=== PATIENT | male | born 1970 | race Caucasian/White ===

== ENCOUNTER → 2024-07-09 | Outpatient (CLI) | payer MEDICAID, SELFPAY ==
[2024-07-09 12:06] LABS: Absolute Lymphocyte Count 1.35 X10^3/uL (0.83-4.51); Absolute Neutrophil Count 4.7 X10^3/uL (2.0-7.7); Basophil# 0.05 X10^3/uL; Basophil% 0.7 % (0-1); Eosinophil# 0.18 X10^3/uL; Eosinophils% 2.6 % (0-5); Hematocrit 47.5 % (40-54); Lymphocyte # 1.35 X10^3/ul (0.83-4.51); Lymphocyte % 19.1 % (19-41); Mean Corp Hgb Conc 33.7 g/dL (32-36); Mean Corpuscular Hgb 30.3 pg (27.0-32.0); Mean Platelet Vol. 9.2 fl (6.2-12.0); Monocyte# 0.69 X10^3/uL; Monocyte% 9.8 % (0-10); NRBC Flagged by Analyzer 0 % (0-5); Neutrophil # 4.73 X10^3/uL (2.7-7.7); Neutrophil % 67.1 % (47-70); Platelet Count 306 K/mm3 (150-450); RBC Distribution Width CV 12.7 % (11.6-14.6); RBC Distribution Width SD 41.8 fl (35.1-43.9); Red Blood Count 5.28 M/mm3 (4.6-6.2); White Blood Count 7.1 K/mm3 (4.4-11.0)
[2024-07-09 13:35] LABS: ALB/GLOB Ratio 1.5 RATIO (0.9-2.4); AST(SGOT) 24 U/L (<=37); Alanine Aminotransfer ALT/SGPT 19 U/L (<=46); Albumin, Serum 4.4 g/dL (3.5-5.0); Alkaline Phosphatase 89 U/L (40-129); Anion Gap 9 (5-15); BUN 14 mg/dL (4-19); BUN/Creat Ratio 13.1 RATIO (10-20); Calcium,Total 9.1 mg/dL (7.6-11.0); Carbon Dioxide 24.6 mmol/L (21.0-32.0); Chloride 102 mmol/L (98-108); Creatinine, Serum 1.06 mg/dL (0.70-1.20); EST Glomerular Filtration Rate 85 (>60); Glucose 95 mg/dL (70-99); Potassium 4.1 mmol/L (3.3-5.1); Protein, Total 7.3 g/dL (5.9-8.4); Sodium Level 136 mmol/L (133-145); Total Bilirubin 0.59 mg/dL (0.00-1.30); Vitamin B12 412 pg/mL (180-914); Vitamin D,25 Hydroxy 27.3 ng/mL (30-100)
== END | disposition home or self-care (01) ==
LOC: LAB 11:39
DX: F32.A Depression, unspecified (principal); N52.9 Male erectile dysfunction, unspecified
CPT/HCPCS: 36415; 80053; 82306; 82607; 84402; 84403; 84443; 85025

== ENCOUNTER 2024-08-12 08:51 | Day surgery (SDC) | payer MEDICAID, SELFPAY ==
[2024-08-12] VITALS (13 sets, daily range): BP systolic 110–132; BP diastolic 78–92; PULSE 70–84; RESP 12–18; TEMP 36.3–37.6; O2SAT 95–100; BMI 24.0
--- NOTE | 2024-08-12 09:00 | EKG12_ITS ---
Test Reason : PREOP Blood Pressure : */* mmHG Vent. Rate : 82 BPM Atrial Rate : 82 BPM P-R Int : 146 ms QRS Dur : 142 ms QT Int : 412 ms P-R-T Axes : 15 119 3 degrees QTcB Int : 481 ms Normal sinus rhythm Right bundle branch block Abnormal ECG No previous ECGs available Confirmed by Jarrell Melgar ([id number]), rewrite editor LATRICIA GUADALUPE ([id number]) on 08/16/2024 9:14:43 AM Referred By: Sami Martinez Confirmed By: Jarrell Melgar
[2024-08-12] MEDS: Lactated Ringers 1,000 ML 15 ML IV (09:43)
--- NOTE | 2024-08-12 09:52 | PCM.PRE.AN2 ---
ASA Classification* ASA Classification ASA Classification: 2 Assessment & Plan Anesthesia* Anesthesia Assessment Anesthesia Assessment: Discussed sedation and/or anesthesia options, risks, benefits, and alternatives with patient/parents/legal guardian/POA. Questions invited. The patient/parents/legal guardian/POA seems to understand and agrees to proceed with anesthesia plan. Reviewed the physical assessment, medical history, allergy history and patient home medications list prior to surgery/procedure/anesthetic and documented any changes. Performed airway and anesthesia risk assessments. Anesthesia Type Anesthesia Type: General (Patient is concerned about awareness IntraOp. Will use a bis monitor.) History Source History Obtained from:: Patient and Chart Anesthesia Focused Assessment* Temperature: 99.7 F Pulse Rate: 84 Blood Pressure: 132/92 Respiratory Rate: 16 Pulse Ox: 99 Oxygen Delivery Method: Room Air Airway Assessment Mouth opens: >3 cm Mallampati Score: I Teeth Condition: Chipped/Broken (Patient has a chipped #8. Has a couple broken molars on the upper jaw.) Neck Range of motion (ROM): Full ROM Focused Labs Anesthesia Preop lab: CBC WBC 7.1 K/mm3 (4.4-11.0) 07/09/24 11:47 07/09/24 RBC 5.28 M/mm3 (4.6-6.2) 07/09/24 11:47 07/09/24 Hgb 16.0 g/dL (13.0-16.5) 07/09/24 11:47 07/09/24 Hct 47.5 % (40-54) 07/09/24 11:47 07/09/24 Plt Count 306 K/mm3 (150-450) 07/09/24 11:47 07/09/24 CHEMISTRY Potassium 4.1 mmol/L (3.3-5.1) 07/09/24 11:47 07/09/24 Sodium 136 mmol/L (133-145) 07/09/24 11:47 07/09/24 BUN 14 mg/dL (4-19) 07/09/24 11:47 07/09/24 Creatinine 1.06 mg/dL (0.70-1.20) 07/09/24 11:47 07/09/24 Glucose 95 mg/dL (70-99) 07/09/24 11:47 07/09/24 TSH 1.510 uIU/mL (0.300-4.200) 07/09/24 11:47 07/09/24 COAG Pre-Assessment Diagnosis/Proposed Procedure Planned Operative Procedure(s): LAP ROBOTIC INGUINAL HERNIA RIGHT WITH MESH Anesthesia History Anesthesia History - learning development specialist: Anesthesia History - learning development specialist Hx Hospitalization No 08/06/24 13:31 Any Problems With Anesthesia No 08/06/24 13:31 Cholinesterase deficiency No 08/06/24 13:31 You/Your Family Experience No 08/06/24 13:31 fever (hyperthermia) with Relationship Recent Exposure to Contagious No 08/12/24 09:36 Disease Does patient have nerve No 08/06/24 13:31 stimulator Patient instructed to have device shut off --Does patient have Pacemaker No 08/12/24 09:36 or ICD? When Was Last Pacemaker Check QUESTION #4 FULL TEXT: You/Your Family Experience fever (hyperthermia) with Anesthesia Last Oral Intake Last Oral intake: Last Oral Intake NPO since 22:00 08/12/24 09:36 Meds taken in AM with sips of No 08/12/24 09:36 water? Meds patient instructed to take am of surgery PONV PONV - learning development specialist: PONV - learning development specialist Female No 08/06/24 13:31 HX of Motion Sickness No 08/06/24 13:31 HX of N/V After Surgery No 08/06/24 13:31 Non-Smoker Yes 08/06/24 13:31 Duration of Surgery greater Yes 08/06/24 13:31 than 60 minutes Number of Risk Factors 2 08/06/24 13:31 PONV Score Moderate Risk 08/06/24 13:31 Height & Weight Height & Weight: Anesthesia: Height & Weight Height 6 ft 3 in 08/12/24 09:36 Weight: 87.1 kg 08/12/24 09:36 Body Mass Index (BMI) 24.0 08/12/24 09:36 Respiratory Assessment Respiratory Assessment - learning development specialist: Respiratory Tract Infection Hx - learning development specialist Hx Respiratory Tract Infection No 08/06/24 13:31 STOP Sleep Apnea STOP Sleep Apnea - learning development specialist: STOP Sleep Apnea - learning development specialist Hx Hypertension No 08/06/24 13:31 Hx Sleep Apnea No 08/06/24 13:31 CPAP BIPAP Do you snore loudly (louder No 08/06/24 13:31 than talking or can be heard Do you often feel tired/ Yes 08/06/24 13:31 fatigued/ sleepy during daytime? Has anyone observed you stop No 08/06/24 13:31 breathing during sleep? STOP Results Negative 08/06/24 13:31 QUESTION #5 FULL TEXT : Do you snore loudly (louder than talking or can be heard through closed doors)? Tobacco Use History Tobacco Use History - learning development specialist: Tobacco Use History - learning development specialist Tobacco Use Smoking Status Never smoker 08/06/24 13:31 Hx Tobacco Use No 08/06/24 13:31 Years Smoking Packs Smoked per Day Smoking Cessation Date was within the last 15 years Hx Smoking Cessation Date Hx Smoking Cessation Counseling Hematologic Medial History Hematologic Hx - learning development specialist: Hematologic Medical Hx - tester wafer substrate Hx of Blood Transfusion No 08/06/24 13:31 Hx of Transfusion in last 3 No 08/06/24 13:31 Months Date of Last Transfusion (if within last 3 months) Ever experience any problems No 08/06/24 13:31 with transfusion(s)? Specify any problems Hx of Preganancy in last 3 N/A 08/06/24 13:31 Months Nurse Filling Out Transfusion DSCHRIBER 08/06/24 13:31 & Questions: Date: 08/06/24 08/06/24 13:31 Time: 13:32 08/06/24 13:31 Patient unable to answer at this time (ie. confused, unrespo /Reproduction History /Reproductive History - learning development specialist: /Reproductive Hx- learning development specialist Hx Now No 08/06/24 13:31 Gestational Age (in weeks): EDC: Hx Hx Para Hx Section SAB No 08/06/24 13:31 Active Medications Active Medications: Current Medications Generic Name Dose Route Start Last Admin Trade Name Freq PRN Reason Stop Dose Admin Cefazolin Sodium 2 gm/ Sodium 110 mls @ 150 mls/hr 08/12/24 11:00 Chloride IV 08/12/24 11:43 INTRAOP ONE Lactated Ringer's 1,000 mls @ 15 mls/hr 08/12/24 09:00 08/12/24 09:43 IV 15 mls/hr .Q48H YARELIS Administration PFSH Medical History Wears glasses Substance abuse Alcohol use Back pain Injury of back Leg cramps Non-smoker Injury of head and neck Arthritis Anxiety Home Medications ?Medication ?Instructions ?Recorded ?Last Taken ?Type cholecalciferol (vitamin D3) 25 25 mcg PO QDAY 07/20/24 08/10/24 History mcg (1,000 unit) capsule naproxen sodium 220 mg capsule 220 mg PO BID PRN pain 07/20/24 Unknown History (Aleve) sildenafil 50 mg tablet 50 mg PO QDAY PRN ED 07/20/24 08/10/24 History Allergy/AdvReac Type Severity Reaction Status Date / Time No Known Allergies Allergy Verified 08/12/24 09:34 Family History Father Cancer lung Mother Heart disease CHF (congestive heart failure) Surgical History Hx of knee surgery Hx of shoulder surgery H/O bilateral inguinal hernia repair Social History Smoking Status: Never smoker alcohol intake: former Review of Systems (Anesthesia) ROS Narrative System reviewed and no additional complaints, except as documented.
--- OUTSIDE RECORDS SUMMARY | 2024-08-12 09:56 | XMS RPT_ITS | CCD ---
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 Sami Ty Attending Provider [facility] PRODUCTION CORRUGATOR.Sho REDD Unavailable Sami Martinez Attending Unavailable Beam, Wicho Primary Care Unavailable Beam, W[place]o Referring Unavailable Sami Martinez Referring Unavailable Beam VSC, Zebugarima Primary Care Unavailable Sami Martinez Attending Unavailable Care Physician, No Primary Primary Care Unava ilable Beam VSC, Zebumaykeln Attending Unavailable Beam VSC, Zebulun Referring Unavailable Medications Current Medications Medication Drug Class(es) Dates Sig (Normalized) Sig (Original) cholecalciferol 0.025 mg oral capsule (1 source) Vitamin D Start: 5 take 1 capsule by mouth once daily Cholecalciferol (Vitamin D3) 25 mcg (1,000 unit) capsule Active 25 ug PO daily July 20, 2024 12:00am naproxen sodium 220 mg oral capsule (1 source) Nonsteroidal Anti-inflammatory Drug Start: 5 take 1 capsule by mouth twice daily as needed Naproxen Sodium (Aleve) 220 mg capsule Active 220 mg PO TWICE A DAY as needed July 20, 2024 12:00am sertraline 50 mg oral tablet (1 source) Serotonin Reuptake Inhibitor Start: 5 take 1 tablet by mouth once daily Sertraline (Zoloft) 50 mg tablet Active 50 mg PO daily July 20, 2024 12:00am sildenafil 50 mg oral tablet (1 source) Phosphodiesterase 5 Inhibitor Start: Sildenafil 50 mg tablet Active 50 mg PO daily as needed July 20, 2024 12:00am administer 30 minutes to 4 hours before activity Problems Active Problems Problem Classification Problem Date Documented Da te Episodic/Chronic Abdominal hernia (3 sources) Unilateral inguinal hernia, without obstruction or gangrene, recurrent; Translations: [Right inguinal hernia ] Onset: 05-22-2024 07-20-2024 Episodic Abdominal pain (2 sources) Epigastric pain; Translations: [Generalized abdominal pain] Onset: 05-22-2024 Episodic Mood disorders (1 source) Mood disorders; Translations: [Depression, unspecified] Onset: 07-14-2024 Other male genital disorders (2 sources) Male erectile dysfunction, unspecified; Translations: [Impotence of organic origin] 08-03-2024 Chronic Past or Other Problems Problem Classification Problem Date Documented Da te Episodic/Chronic Unclassified (1 source) Other male erectile dysfunction 08-03-2024 Results Test Name Value Interpretation Reference Range Facility Testosterone, Total / Freeon 07-27-2024 TESTOSTER,FREE 18.19 ng/dL Normal 5.00-21.00 [facility] Comment on above: Order Comment: N Performed By: #### L 506.1001, L503.0106, L500.4050, L3100.5310, L501.9520, L100.0100 #### [facility] [address] [facility] [place], [address] TESTOSTER,TOTAL 812 ng/dL Normal 264-916 [facility] Comment on above: Order Comment: N Result Comment: Adul t male reference interval is based on a population of healthy nonobese males (BMI <30) between 19 and 39 years old. ailyn Giordano.al. JCEM 2017,102;6818-7167. PMID: [id number]. Performed By: #### L 506.1001, L503.0106, L500.4050, L3100.5310, L501.9520, L100.0100 #### [facility] [address] [facility] [place], [address] TESTOSTERONE,%F 2.24 Normal 1.50-4.20 [facility] Comment on above: Order Comment: N Result Comment: Perf ormed at: [facility] [address] [id number] Yard Associate: Valente Weinberg PhD, Phone: [phone] Performed at: [facility] [address] [id number] Yard Associate: Rosalia Clark MD, Phone: [phone] Performed By: #### L 506.1001, L503.0106, L500.4050, L3100.5310, L501.9520, L100.0100 #### [facility] [address] [place], [address] Surgery Visit Reporton 07-20 Surgery Visit Report [facility] [address] [place] [address] OFFICE VISIT Date of Service: 07/20/24 MR#: [id number] Acct: [id number] Name: TACOS OQUENDO Rep #: [id number] : 1970 Provider: Dr. Sami jackson MD Age/Sex: 53/M Location: [facility] Status: Signed Intake Vital Signs 07/20/24 09:56 Height 6 ft Weight: 196 lb BMI 26.6 BP 128/80 H Blood Pressure Location Rt brachial Position Sitting Respiration 17 Pulse 89 Pulse Source Monitor Pulse Oximetry (%) 99 Oxygen Delivery Method room air Intake Visit Reasons: Hernia Chief Complaint: inguinal hernia Is patient in pain?: Yes Allergies No Known Allergies Allergy (Verified 07/20/24 09:57) Medications ???Medication ???Instructions ???Recorded ???Confirmed ???Type cholecalciferol (vitamin D3) 25 25 mcg PO QDAY 07/20/24 07/20/24 H istory mcg (1,000 unit) capsule naproxen sodium 220 mg capsule 220 mg PO BID PRN 07/20/24 5 History (Aleve) sertraline 50 mg tablet (Zoloft) 50 mg PO QDAY 07/20/24 07/20/24 Hi story sildenafil 50 mg tablet 50 mg PO QDAY PRN 07/20/24 5 History PFSH Medical History Arthritis Anxiety Surgical History H/O bilateral inguinal hernia repair Family History Father Cancer lung Mother Heart disease CHF (congestive heart failure) Social History Smoking Status: Never smoker alcohol intake: former HPI HPI HPI: The patient is a 53-year-old male who is being seen today for a right inguinal hernia. He states he has had this for quite some time and has noticed this becoming significantly larger as time goes on. He presents today for evaluation. He had a recent CT scan that revealed a 4 cm hernia in the right groin containing loops of small bowel. He states that this is easily able to be reduced ROS General General: No weight change, appetite, fatigue, colon cancer, breast cancer or weakness HEENT HEENT: No difficulty swallowing, eye injury, eye surgery, swollen glands or hoarseness Endo Endocrine: No thyroid disease, diabetes mellitus, thyroid cancer, Hair loss, heat intolerance or cold intolerance Skin Skin: No rash or changing moles Musc Musculoskeletal: Yes back problems, arthritis and rheumatoid arthritis; No gout or joint pain Cardio Cardiovascular: No murmur, pacemaker, heart disease, atrial fibrillation, high blood pressure, heart attack, heart stent, palpitations, shortness of breath with exertion or chest pain Psych Psychiatric: Yes anxiety; No depression or hearing voices Resp Respiratory: No shortness of breath, No sleep apnea, No cough, No COPD, No asthma, No emphysema and No wheezing Gastro Gastrointestinal: Yes abdominal pain, No nausea or vomiting, No diarrhea, No constipation, No blood in stool, No acid reflux, No hemorrhoids, No ulcers, No gallbladder problem and No black,tarry stools Lobo Hematologic: No blood thinners, No blood disorders, No bleeding, No anemia and No blood clots Neuro Neurologic: No system reviewed and no additional complaints, except as documented, No as per HPI, No abnormal gait, No abnormal hearing, No abnormal movements, No abnormal speech, No behavioral changes, No burning sensations, No confusion, No convulsions, No disequilibrium, No dizziness, No localized weakness, No frequent falls, No headache(s), No lack of coordination, No loss of vision, No memory loss, No numbness, No other visual disturbances, No radicular pain, No restless legs, No sensory deficit, No syncope, No tingling, No tremor(s), No weakness and No other Exam Const General: cooperative, healthy appearing, comfortable and no acute distress [facility] Head: normal to inspection Eyes General: appearance normal, both eyes and all related structures Neck Neck: normal visual inspection Resp Effort Inspection: normal respiratory effort GI Inspection: normal to inspection Other: Examination reveals a visibly obvious right inguinal hernia. This seems to be a fairly sizable direct hernia however this is fairly easily reducible. No evidence of left inguinal hernia. He has had previous bilateral open repairs as a child. He is uncertain whether these were performed with mesh. I would suspect no mesh was used based on his age at the time of surgery Assessment and Plan Assessment and Plan (1) Hernia: (2) Right inguinal hernia: Status: Acute Plan: The patient is a 53-year-old male who is being seen today for a right inguinal hernia. I have offered him a robotic repair with mesh. We discussed the deta (more content not included)... Normal [facility] Absolute lymphocyte countOrd ered By: charlesdayna [facility] on 07-09-2024 Lymphocytes Auto (Unsp spec) [#/Vol] 1.35 10*3/uL 0.83-4.51 [facility] Absolute neutrophil countOrd ered By: [facility] on 07-09-2024 Neutrophils (Bld) [#/Vol] 4.7 10*3/uL 2.0-7.7 [facility] Anion gap in Serum or Plasma Ordered By: Vivianadayna Urban on 07-09-2024 Anion gap [Moles/Vol] 9 mmol/L 5-15 [facility] Automated lymphocyte count a s percentage of total leukocytesOrdered By: charlesdayna [facility] on 07-09-2024 Lymphocytes/100 WBC Auto (Unsp spec) 19.1 % 19-41 [facility] BUN/creatinine ratioOrdered By: Zebulun Beam on 07-09-2024 Urea nitrogen/Creatinine [Mass ratio] 13.1 mg/mg 10- [facility] Basophil percentageOrdered B y: Zebulun Beam on 07-09-2024 Basophils/100 WBC (Bld) 0.7 % 0-1 [facility] Bilirubin, totalOrdered By: Zebulun Beam on 07-09-2024 Bilirubin [Mass/Vol] 0.59 mg/dL 0.00-1.30 [facility] CBC W/Diff, Automatedon 05-2024 Absolute Lymph 1.35 X10 3/uL Normal 0.83-4.51 [facility] Comment on above: Performed By: #### L 506.1001, L503.0106, L500.4050, L3100.5310, L501.9520, L100.0100 #### [facility] [address] [place], [address] Absolute Neut 4.7 X10 3/uL Normal 2.0-7.7 [facility] Comment on above: Performed By: #### L 506.1001, L503.0106, L500.4050, L3100.5310, L501.9520, L100.0100 #### [facility] [address] [place], [address] Basophils/100 WBC (Bld) 0.7 % Normal 0-1 [facility] Comment on above: Performed By: #### L 506.1001, L503.0106, L500.4050, L3100.5310, L501.9520, L100.0100 #### [facility] [address] [place], [address] Eosinophils/100 WBC (Bld) 2.6 % Normal 0-5 [facility] Comment on above: Performed By: #### L 506.1001, L503.0106, L500.4050, L3100.5310, L501.9520, L100.0100 #### [facility] [address] [place], [address] Erythrocyte distribution width (RBC) [Ratio] 12.7 % Normal 11.6-14.6 [facility] Comment on above: Performed By: #### L 506.1001, L503.0106, L500.4050, L3100.5310, L501.9520, L100.0100 #### [facility] [address] [place], [address] Hematocrit (Bld) [Volume fraction] 47.5 % Normal 40-54 [facility] Comment on above: Performed By: #### L 506.1001, L503.0106, L500.4050, L3100.5310, L501.9520, L100.0100 #### [facility] [address] [place], [address] Hemoglobin (Bld) [Mass/Vol] 16.0 g/dL Normal 13.0-16.5 [facility] Comment on above: Performed By: #### L 506.1001, L503.0106, L500.4050, L3100.5310, L501.9520, L100.0100 #### [facility] [address] [place], [address] IG% 0.700 Normal 0.0-0.9 [facility] Comment on above: Result Comment: IG% - Immature Granulocytes (promyelocytes, myelocytes and metamyelocytes) > 1% indicates that a LEFT SHIFT is Present. Performed By: #### L 506.1001, L503.0106, L500.4050, L3100.5310, L501.9520, L100.0100 #### [facility] [address] [place], [address] Lymphocytes/100 WBC (Bld) 19.1 % Normal 19-41 [facility] Comment on above: Performed By: #### L 506.1001, L503.0106, L500.4050, L3100.5310, L501.9520, L100.0100 #### [facility] [address] [place], [address] MCH (RBC) [Entitic mass] 30.3 pg Normal 27.0-32.0 [facility] Comment on above: Performed By: #### L 506.1001, L503.0106, L500.4050, L3100.5310, L501.9520, L100.0100 #### [facility] [address] [place], [address] MCHC (RBC) [Mass/Vol] 33.7 g/dL Normal 32-36 [facility] Comment on above: Performed By: #### L 506.1001, L503.0106, L500.4050, L3100.5310, L501.9520, L100.0100 #### [facility] [address] [place], [address] MCV (RBC) [Entitic vol] 90.0 fL Normal 80-94 [facility] Comment on above: Performed By: #### L 506.1001, L503.0106, L500.4050, L3100.5310, L501.9520, L100.0100 #### [facility] [address] [place], [address] Monocytes/100 WBC (Bld) 9.8 % Normal 0-10 [facility] Comment on above: Performed By: #### L 506.1001, L503.0106, L500.4050, L3100.5310, L501.9520, L100.0100 #### [facility] [address] [place], [address] Neutrophils/100 WBC (Bld) 67.1 % Normal 47-70 [facility] Comment on above: Performed By: #### L 506.1001, L503.0106, L500.4050, L3100.5310, L501.9520, L100.0100 #### [facility] [address] [place], [address] Nucleated RBC (Bld) [#/Vol] 0 10*3/uL Normal 0-5 [facility] Comment on above: Performed By: #### L 506.1001, L503.0106, L500.4050, L3100.5310, L501.9520, L100.0100 #### [facility] [address] [place], [address] Platelet mean volume (Bld) [Entitic vol] 9.2 fL Normal 6.2-12.0 [facility] Comment on above: Performed By: #### L 506.1001, L503.0106, L500.4050, L3100.5310, L501.9520, L100.0100 #### [facility] [address] [place], [address] Platelets (Bld) [#/Vol] 306 10*3/uL Normal 150-450 [facility] Comment on above: Performed By: #### L 506.1001, L503.0106, L500.4050, L3100.5310, L501.9520, L100.0100 #### [facility] [address] [place], [address] RBC (Bld) [#/Vol] 5.28 10*6/uL Normal 4.6-6.2 [facility] Comment on above: Performed By: #### L 506.1001, L503.0106, L500.4050, L3100.5310, L501.9520, L100.0100 #### [facility] [address] [place], [address] RDW SD 41.8 fl Normal 35.1-43.9 [facility] Comment on above: Performed By: #### L 506.1001, L503.0106, L500.4050, L3100.5310, L501.9520, L100.0100 #### [facility] [address] [place], [address] WBC (Bld) [#/Vol] 7.1 10*3/uL Normal 4.4-11.0 [facility] Comment on above: Performed By: #### L 506.1001, L503.0106, L500.4050, L3100.5310, L501.9520, L100.0100 #### [facility] [address] [place], [address] Carbon dioxide, total [Moles /volume] in Central venous bloodOrdered By: Larry Urban on 07-09-2024 CO2 [Moles/Vol] 24.6 mmol/L 21.0-32.0 [facility] Chloride assayOrdered By: Gregorio Urban on 07-09-2024 Chloride [Moles/Vol] 102 mmol/L 98-108 [facility] Comprehensive Metabolic Prof ilon 07-09-2024 Albumin [Mass/Vol] 4.4 g/dL Normal 3.5-5.0 [facility] Comment on above: Performed By: #### L 506.1001, L503.0106, L500.4050, L3100.5310, L501.9520, L100.0100 #### [facility] [address] [place], [address] Albumin/Globulin [Mass ratio] 1.5 {ratio} Normal 0.9-2.4 [facility] Comment on above: Performed By: #### L 506.1001, L503.0106, L500.4050, L3100.5310, L501.9520, L100.0100 #### [facility] [address] [place], [address] ALK PHOS 89 U/L Normal 40-129 [facility] Comment on above: Performed By: #### L 506.1001, L503.0106, L500.4050, L3100.5310, L501.9520, L100.0100 #### [facility] [address] [place], [address] ALT [Catalytic activity/Vol] 19 U/L Normal <=46 [facility] Comment on above: Performed By: #### L 506.1001, L503.0106, L500.4050, L3100.5310, L501.9520, L100.0100 #### [facility] [address] [place], [address] AST [Catalytic activity/Vol] 24 U/L Normal <=37 [facility] Comment on above: Performed By: #### L 506.1001, L503.0106, L500.4050, L3100.5310, L501.9520, L100.0100 #### [facility] [address] [place], [address] Bilirubin [Mass/Vol] 0.59 mg/dL Normal 0.00-1.30 [facility] Comment on above: Performed By: #### L 506.1001, L503.0106, L500.4050, L3100.5310, L501.9520, L100.0100 #### [facility] [address] [place], [address] BUN/CRE 13.1 RATIO Normal 10-20 [facility] Comment on above: Performed By: #### L 506.1001, L503.0106, L500.4050, L3100.5310, L501.9520, L100.0100 #### [facility] [address] [place], [address] Calcium [Mass/Vol] 9.1 mg/dL Normal 7.6-11.0 [facility] Comment on above: Performed By: #### L 506.1001, L503.0106, L500.4050, L3100.5310, L501.9520, L100.0100 #### [facility] [address] [place], [address] Chloride [Moles/Vol] 102 mmol/L Normal 98-108 [facility] Comment on above: Performed By: #### L 506.1001, L503.0106, L500.4050, L3100.5310, L501.9520, L100.0100 #### [facility] [address] [place], [address] CO2 [Moles/Vol] 24.6 mmol/L Normal 21.0-32.0 [facility] Comment on above: Performed By: #### L 506.1001, L503.0106, L500.4050, L3100.5310, L501.9520, L100.0100 #### [facility] [address] [place], [address] Creatinine [Mass/Vol] 1.06 mg/dL Normal 0.70-1.20 [facility] Comment on above: Performed By: #### L 506.1001, L503.0106, L500.4050, L3100.5310, L501.9520, L100.0100 #### [facility] [address] [place], [address] GAP 9 Normal 5-15 [facility] Comment on above: Performed By: #### L 506.1001, L503.0106, L500.4050, L3100.5310, L501.9520, L100.0100 #### [facility] [address] [place], [address] GFR/1.73 sq M.predicted among non-blacks MDRD (S/P/Bld) [Vol rate/Area] 85 mL/min/{1.73_m2} Normal >60 [facility] Comment on above: Result Comment: mL/m in/1.73m2 CKD-EPI Creatinine Equation (2020) Performed By: #### L 506.1001, L503.0106, L500.4050, L3100.5310, L501.9520, L100.0100 #### [facility] [address] [place], [address] Globulin (S) [Mass/Vol] 3.0 g/dL Normal 2.2-4.2 [facility] Comment on above: Performed By: #### L 506.1001, L503.0106, L500.4050, L3100.5310, L501.9520, L100.0100 #### [facility] [address] [place], [address] Glucose [Mass/Vol] 95 mg/dL Normal 70-99 [facility] Comment on above: Performed By: #### L 506.1001, L503.0106, L500.4050, L3100.5310, L501.9520, L100.0100 #### [facility] [address] [place], [address] Potassium [Moles/Vol] 4.1 mmol/L Normal 3.3-5.1 [facility] Comment on above: Performed By: #### L 506.1001, L503.0106, L500.4050, L3100.5310, L501.9520, L100.0100 #### [facility] [address] [place], [address] Sodium [Moles/Vol] 136 mmol/L Normal 133-145 [facility] Comment on above: Performed By: #### L 506.1001, L503.0106, L500.4050, L3100.5310, L501.9520, L100.0100 #### [facility] [address] [place], [address] T PROT 7.3 g/dL Normal 5.9-8.4 [facility] Comment on above: Performed By: #### L 506.1001, L503.0106, L500.4050, L3100.5310, L501.9520, L100.0100 #### [facility] [address] [place], [place], [address] Urea nitrogen [Mass/Vol] 14 mg/dL Normal 4-19 [facility] Comment on above: Performed By: #### L 506.1001, L503.0106, L500.4050, L3100.5310, L501.9520, L100.0100 #### [facility] [address] [place], [place], [address] Eosinophil percentageOrdered By: Larry Urban on 07-09-2024 Eosinophils/100 WBC (Bld) 2.6 % 0-5 [facility] Erythrocyte distribution wid th ratioOrdered By: [facility] on 07-09-2024 Erythrocyte distribution width (RBC) [Ratio] 12.7 % 11.6-14.6 [facility] Erythrocyte distribution wid th standard deviationOrdered By: [facility] on 07-09-2024 Erythrocyte distribution width (RBC) [Ratio] 41.8 fl 35.1-43.9 [facility] Glomerular filtration rate ( GFR) estimation/1.73 sq m using serum, plasma, or whole bOrdered By: Larry Urban on 07-09-2024 GFR/1.73 sq M.predicted among non-blacks MDRD (S/P/Bld) [Vol rate/Area] 85 mL/min/{1.73_m2} >60 [facility] Comment on above: mL/min/1.73m2 CKD-EP I Creatinine Equation (2020) Hematocrit Auto (Bld) [Volum e fraction]Ordered By: Larry Urban on 07-09-2024 Hematocrit (Bld) [Volume fraction] 47.5 % 40-54 [facility] Hemoglobin measurementOrdere d By: Larry Urban on 07-09-2024 Hemoglobin (Bld) [Mass/Vol] 16.0 g/dL 13.0-16.5 [facility] Immature granulocytes/100 WB C Auto (Bld)Ordered By: Larry Urban on 07-09-2024 Immature granulocytes/100 WBC (Bld) 0.700 % 0.0-0.9 [facility] Comment on above: IG% - Immature Granu locytes (promyelocytes, myelocytes and metamyelocytes) > 1% indicates that a LEFT SHIFT is Present. Laboratory - Chemistry and C hemistry - challengeOrdered By: Larry Urban on 07-09-2024 AST [Catalytic activity/Vol] 24 U/L <38 [facility] MCV (mean corpuscular volume ) determinationOrdered By: Larry Urban on 07-09-2024 MCV (RBC) [Entitic vol] 90.0 fL 80-94 [facility] Mean corpuscular hemoglobin (MCH) determinationOrdered By: charlesdayna Urban on 07-09-2024 MCH (RBC) [Entitic mass] 30.3 pg 27.0-32.0 [facility] Mean corpuscular hemoglobin concentration (MCHC) determinationOrdered By: Larry Beam on 07-09-2024 MCHC (RBC) [Mass/Vol] 33.7 g/dL 32-36 [facility] Mean platelet volume determi nationOrdered By: Larry Beam on 07-09-2024 Platelet mean volume (Bld) [Entitic vol] 9.2 fL 6.2-12.0 [facility] Monocyte percentageOrdered B y: Larry Urban on 07-09-2024 Monocytes/100 WBC (Bld) 9.8 % 0-10 [facility] Neutrophil percentageOrdered By: Larry Beam on 07-09-2024 Neutrophils/100 WBC (Bld) 67.1 % 47-70 [facility] Nucleated red blood cell per centageOrdered By: Larry Beam on 07-09-2024 Nucleated RBC/100 WBC (Bld) [Ratio] 0 % 0-5 [facility] Platelet countOrdered By: Gregorio Urban on 07-09-2024 Platelets (Bld) [#/Vol] 306 10*3/uL 150-450 [facility] Potassium measurement (mass/ volume)Ordered By: Larry Urban on 07-09-2024 Potassium (Unsp spec) [Mass/Vol] 4.1 mmol/L 3.3-5.1 [facility] RBC Auto (Bld) [#/Vol]Ordere d By: Larry Urban on 07-09-2024 RBC (Bld) [#/Vol] 5.28 10*6/uL 4.6-6.2 [facility] Serum creatinine measurement (mass/volume)Ordered By: Larry Urban on 07-09-2024 Creatinine [Mass/Vol] 1.06 mg/dL 0.70-1.20 [facility] Serum globulin measurementOr dered By: Larry Urban on 07-09-2024 Globulin (S) [Mass/Vol] 3.0 g/dL 2.2-4.2 [facility] Serum glucose measurement (m ass/volume)Ordered By: Larry Urban on 07-09-2024 Glucose [Mass/Vol] 95 mg/dL 70-99 [facility] Serum or plasma alanine vaughn otransferase (ALT) measurementOrdered By: Larry Urban on 07-09-2024 ALT [Catalytic activity/Vol] 19 U/L <47 [facility] Serum or plasma albumin soham urement (mass/volume)Ordered By: Larry Urban on 07-09-2024 Albumin [Mass/Vol] 4.4 g/dL 3.5-5.0 [facility] Serum or plasma albumin/glob ulin mass ratioOrdered By: Larry Urban on 07-09-2024 Albumin/Globulin [Mass ratio] 1.5 {ratio} 0.9-2.4 [facility] Serum or plasma alkaline isaak sphatase measurementOrdered By: Larry Urban on 07-09-2024 ALP [Catalytic activity/Vol] 89 U/L 40-129 [facility] Serum or plasma calcium soham urement (mass/volume)Ordered By: Larry Urban on 07-09-2024 Calcium [Mass/Vol] 9.1 mg/dL 7.6-11.0 [facility] Serum or plasma urea nitroge n measurement (mass/volume)Ordered By: Gregoriobulun Beam on 07-09-2024 Urea nitrogen [Mass/Vol] 14 mg/dL 4-19 [facility] Sodium levelOrdered By: Zebu garima Beam on 07-09-2024 Sodium [Moles/Vol] 136 mmol/L 133-145 [facility] TSH DL <= 0.005 mIU/L QnOrde red By: Zebulun Beam on 07-09-2024 TSH Qn 1.510 uIU/mL 0.300-4.200 [facility] Thyroid Stim Hormone (TSH)on 07-09-2024 TSH 1.510 uIU/mL Normal 0.300-4.200 [facility] Comment on above: Performed By: #### L 506.1001, L503.0106, L500.4050, L3100.5310, L501.9520, L100.0100 #### [facility] [address] [place], [place], [id number] Total proteinOrdered By: Wicho price Beam on 07-09-2024 Protein [Mass/Vol] 7.3 g/dL 5.9-8.4 [facility] Vitamin B12on 07-09-2024 Cobalamin (Vitamin B12) [Mass/Vol] 412 pg/mL Normal 180-914 [facility] Comment on above: Performed By: #### L 506.1001, L503.0106, L500.4050, L3100.5310, L501.9520, L100.0100 #### [facility] [address] [facility]. [place], [place], [id number] Vitamin B12 ser/plasOrdered By: Zebulun Beam on 07-09-2024 Cobalamin (Vitamin B12) [Mass/Vol] 412 pg/mL 180-914 [facility] Vitamin D,25 Hydroxyon 07-09 Vitamin D 25-OH 27.3 ng/mL Low 30-100 [facility] Comment on above: Result Comment: Starr min D Status Deficiency: <20 ng/mL (50nmol/L) Insufficiency: 20-30 ng/mL (50-75 nmol/L) Sufficiency: 30-100 ng/mL (75-250 nmol/L) Toxicity: >100 ng/mL (>250 nmol/L) Performed By: #### L 506.1001, L503.0106, L500.4050, L3100.5310, L501.9520, L100.0100 #### [facility] [place], [address] White blood cell (WBC) count Ordered By: Larry Urban on 07-09-2024 WBC (Bld) [#/Vol] 7.1 10*3/uL 4.4-11.0 [facility] CNPNon 05-28-2024 CNP Telephone ([facility]) ---- DIPAK OQUENDO ([id number]) 1970 M Date Time Provider Department 05/28/24 IZZY DIAZ During your visit today, we recorded the following information about you: Keerthi Foy 05/28/2024 10:48 AM Signed Returned patients call to reschedule his consult with Dr. Diaz. Allergies As of Date: 05/28/2024 (No Known Allergies) Date Reviewed: 05/22/2024 Reviewed by: Sho Oscar RN - Fully Assessed Problem List As Of Date: 05/28/2024 (None) Encounter Status:Closed by KEERTHI FOY on 05/28/24 [facility] 05-23-2024 [facility] HNO ID: [id number] Author: GT CARDONA RT(R) Service: ? Author Type: Technologist Type: [facility] Filed: 05/23/2024 00:39 Note Text: Radiology Service Progress Note DATE OF SERVICE: May 23, 2024 TIME: 12:38 AM PATIENT IDENTITY VERIFICATION COMPLETED USING TWO (2) STANDARD IDENTIFIERS: Name and Date of confirmed by patient verbally and Name and Date of confirmed by identification band. FALL SCREENING: Has the patient had 2 falls in the last year or 1 fall with injury or currently using an Ambulatory Assistive Device (Walker, Cane, Wheelchair, Crutches, etc.)? 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 EXAM: CT -CONTRAST INDUCED NEPHROPATHY RISK FACTORS: Not applicable CREATININE: Creatinine Date Value Ref Range Status 05/22/2024 1.08 0.73 - 1.22 mg/dL Final Estimated Glomerular Filtration Rate Date Value Ref Range Status 05/22/2024 83 >=60 mL/min/1.73m? Final Comment: Estimated Glomerular Filtration Rate (eGFR) is calculated using the 2020 CKD-EPI creatinine equation. This equation utilizes serum creatinine, sex, and age as parameters. The creatinine assay has traceable calibration to isotope dilution-mass spectrometry. Refer to KDIGO guidelines for clinical interpretation. In patients with unstable renal function, e.g. those with acute kidney injury, the eGFR may not accurately reflect actual GFR. P.O.C.T. RESULTS: POC done: Yes, See Lab Tab May 23, 2024 TREATMENT: N/A PERIPHERAL IV DATA: Inpatient - refer to LDA documentation RADIOLOGY DEPARTMENT: CT; Exam(s) Completed: Abdomen/Pelvis SIGNATURE: RT Joshua(R) PATIENT NAME: Dipak Oquendo DATE: May 23, 2024 TIME: 12:38 AM [facility] CT ABD/PEL W IVCONon 025 CT ABD/PEL W IVCON * * *Final Report* * * DATE OF EXAM: May 23 2024 12:38AM [facility] 0530 - CT ABD/PEL W IVCON / PROCEDURE REASON: Epigastric pain * * * * Physician Interpretation * * * * EXAMINATION: CT ABDOMEN AND PELVIS WITH IV CONTRAST CLINICAL HISTORY: Epigastric pain TECHNIQUE: CT of the abdomen and pelvis was performed using standard technique, scanning from just above the dome of the diaphragm to the symphysis pubis. MQ: CTAP_3 Contrast: IV: 100 ml of Omnipaque 350 : ml of CT Radiation dose: Integrated Dose-length product (DLP) for this visit = 251 mGy*cm. CT Dose Reduction Employed: Automated exposure control(AEC) and iterative recon COMPARISON: None. RESULT: Tiny umbilical fat-containing hernia. Right inguinal small fat-containing hernia measures 4.1 x 2.1 x 2.1 cm. Colonic diverticulosis. Horseshoe kidney. Renal cortical cysts. 2 mm right nephrolithiasis. Right renal pelviectasis. No hydroureter. Subcentimeter retroperitoneal lymph nodes. Normal adrenal glands pancreas spleen liver gallbladder urinary bladder. Multilevel lumbar spondylosis. IMPRESSION: 1. Right inguinal small bowel containing hernia without obstruction or strangulation. 2. Horseshoe kidney. Right renal pelviectasis. Right nephrolithiasis. No hydroureter. 3. Colonic diverticulosis Proof Techn[facility] Transcribe Date/Time: May 23 2024 2:31A Dictated by : TACOS SAM MD This examination was interpreted and the report reviewed and electronically signed by: TACOS SAM MD on May 23 2024 2:40AM EST [id number] Normal [facility] ED NOTEon 05-23-2024 ED NOTE HNO ID: [id number] Author: LORRI CANELA DO Service: Emergency Medicine Author Type: Physician Type: ED Notes Filed: 05/23/2024 07:23 Note Text: 53M cc abd pain for a few days, epigastric now persistent. R inguinal hernia/inducible. Labs ok. [ ] CT, Urine, can likely go home ED Course as of 05/23/24 0723 Lorri Canela's Documentation Sun May 23, [address] ABD/PEL W IVCON IMPRESSION: 1. Right inguinal small bowel containing hernia without obstruction or strangulation. 2. Horseshoe kidney. Right renal pelviectasis. Right nephrolithiasis. No hydroureter. 3. Colonic diverticulosis 0402 Patient reevaluated. Patient denies any urinary complaints. Does not want to wait for urine. Patient is resting comfortably, watching TV and in no acute distress. Patient is tolerating dao chato at bedside. Abdomen is soft and nontender in all quadrants. I do appreciate a right inguinal hernia that is very easily reducible. No overlying erythema, ecchymosis. Discussed results with patient. Patient states that he is currently pain-free. He is comfortable going home. Patient was given return precautions including worsening abdominal pain, nausea, vomiting, to tolerate food or water. Patient was discharged home. Clinical Impressions as of 05/23/24 0723 Epigastric pain Unilateral recurrent inguinal hernia without obstruction or gangrene Generalized abdominal pain Patient reevaluated per above. Discussed options. Patient would prefer to go home at this time. Patient was told to return if he develops any worse abdominal pain, nausea, vomiting, fever, chills, inability tolerate food or water or any other worsening/concernin g symptoms. Patient verbalized understanding. Patient discharged home Lorri Canela DO [facility] ED PROV NOTEon 05-23-2024 ED PROV NOTE HNO ID: [id number] Author: LIANNA DELGADO MD Service: ? Author Type: Physician Type: ED Provider Notes Filed: 05/23/2024 01:46 Note Text: ED Provider Note Patient Name: Dipak Oquendo : 1970 SERVICE DATE: 05/22/24 History Patient presents with: Abdominal Pain: Patient ambulatory to ED with c/o abdominal pain that started one week ago. Patient states that he has right inguinal hernia Denies n/v/d Patient presenting for evaluation secondary to abdominal pain. Patient reports that over the course of the last week he has been having abdominal pain. States that it comes and goes, reports that over the course the last couple of days its become more persistent. It is in his epigastrium has been associated with some nausea and vomiting. Patient states that he is a past history of inguinal hernia, states that he still has 1 and is reducible. History reviewed. No pertinent past medical history. History reviewed. No pertinent surgical history. No family history on file. Social History Tobacco Use Smoking status: Former Types: Cigarettes Smokeless tobacco: Not on file Vaping Use Vaping status: Never Used Substance and Sexual Activity Alcohol use: Yes Drug use: Not on file Sexual activity: Not on file ALLERGIES No Known Allergies Review of Systems Constitutional: Negative for activity change and fever. HENT: Negative for rhinorrhea and sore throat. Respiratory: Negative for cough and shortness of breath. Cardiovascular: Negative for chest pain. Gastrointestinal: Positive for abdominal pain, nausea and vomiting. Negative for diarrhea. Genitourinary: Negative for dysuria. Musculoskeletal: Positive for gait problem. Negative for myalgias. Skin: Negative for rash. Neurological: Negative for weakness and numbness. Psychiatric/Behavio ral: Negative for self-injury. Physical Exam Vitals [05/22/24 2319] BP Pulse Temp Temp src Resp SpO2 Weight Height 122/84 (!) 95 36.8 ?C (98.3 ?F) Oral 16 99 % 96.6 kg (213 lb) -- Physical Exam Vitals and nursing note reviewed. Constitutional: General: He is not in acute distress. Appearance: Normal appearance. He is well-developed. HENT: Head: Normocephalic and atraumatic. Nose: Nose normal. Mouth/Throat: Mouth: Mucous membranes are moist. Eyes: Conjunctiva/sclera: Conjunctivae normal. Pupils: Pupils are equal, round, and reactive to light. Cardiovascular: Rate and Rhythm: Normal rate and regular rhythm. Heart sounds: Normal heart sounds. Comments: Radial pulses 2+ bilaterally Pulmonary: Effort: Pulmonary effort is normal. No respiratory distress. Breath sounds: Normal breath sounds. Abdominal: General: Bowel sounds are normal. There is no distension. Palpations: Abdomen is soft. Tenderness: There is abdominal tenderness in the epigastric area. Hernia: A hernia (Reducible) is present. Hernia is present in the right inguinal area. Musculoskeletal: General: No tenderness. Normal range of motion. Cervical back: Normal range of motion and neck supple. Lymphadenopathy: Cervical: No cervical adenopathy. Skin: General: Skin is warm and dry. Capillary Refill: Capillary refill takes less than 2 seconds. Findings: No rash. Neurological: Mental Status: He is alert and oriented to person, place, and time. GCS: GCS eye subscore is 4. GCS verbal subscore is 5. GCS motor subscore is 6. Sensory: No sensory deficit. Motor: No weakness. Psychiatric: Mood and Affect: Mood normal. Diagnostic Testing ED Labs Ordered and Reviewed COMPREHENSIVE METABOLIC PANEL - Abnormal; Notable for the following components: Result Value Ref Range Glucose 128 (*) 74 - 99 mg/dL All other components within normal limits MAGNESIUM - Normal LIPASE - Normal COMPLETE BLOOD COUNT AND DIFFERENTIAL URINALYSIS (WITH MICROSCOPIC) WITH CULTURE IF INDICATED Procedures ED Course / Clinical Impression Clinical Impressions as of 05/23/24 0146 Epigastric pain Unilateral recurrent inguinal hernia without obstruction or gangrene MDM / Disposition / Plan Patient presenting for evaluation secondary to abdominal pain. Patient has a reducible inguinal hernia I do not think that this presentation of an incarcerated hernia he does have epigastric pain workup is initiated was given morphine and Zofran. Chemistry is unremarkable lipase within normal limits CBC demonstrates no signs of leukocytosis. CT abdomen and pelvis is pending at this time, patient's imaging will be followed up on by the oncoming physician. Seems likely that the patient will be discharged. History and Record Review Clinical information obtained from an independent historian. History obtained from or confirmed by: family member. External record(s) reviewed: prior outpatient record. Differential Diagnoses - Pancreatitis - Visceral abdominal pain - Bowel obstruction Management Meds Given During Visit ED Medication A (more content not included)... Normal [facility] CBC W Auto Differential pane l (Bld)on 05-22-2024 Basophils (Bld) [#/Vol] 0.05 10*3/uL Normal <0.[address] [facility] Comment on above: Order Comment: Mario Alberto lawrence Type: BLOOD SPECIMEN Ordering Facility: [facility] Address: [address] [place] [address] Performed By: #### 5 7021-8 #### [facility] CLIA [id number] [address] [place] [address] [place] Basophils/100 WBC (Bld) 0.8 % Normal [facility] Comment on above: Order Comment: Mario Alberto lawrence Type: BLOOD SPECIMEN Ordering Facility: [facility] Address: [address] [place] [address] Performed By: #### 5 7021-8 #### [facility] CLIA [id number] [address] [place] [address] [place] Differential cell count method Nom (Bld) Auto Normal [facility] Comment on above: Order Comment: Mario Alberto lawrence Type: BLOOD SPECIMEN Ordering Facility: [facility] Address: [address] [place] [address] Performed By: #### 5 7021-8 #### [facility] CLIA [id number] [address] [place] [address] [place] Eosinophils (Bld) [#/Vol] 0.17 10*3/uL Normal <0.[address] [facility] Comment on above: Order Comment: Speci men Type: BLOOD SPECIMEN Ordering Facility: [facility] Address: [address] [place] [address] Performed By: #### 5 7021-8 #### [facility] CLIA [id number] [address] [place] Eosinophils/100 WBC (Bld) 2.8 % Normal [facility] Comment on above: Order Comment: Speci men Type: BLOOD SPECIMEN Ordering Facility: [facility] Address: [address] [place] [address] Performed By: #### 5 7021-8 #### [facility] CLIA [id number] [address] Erythrocyte distribution width (RBC) [Ratio] 12.2 % Normal 11.5-15.[address] [facility] Comment on above: Order Comment: Speci men Type: BLOOD SPECIMEN Ordering Facility: [facility] Address: [address] [place] [address] Performed By: #### 5 7021-8 #### [facility] CLIA [id number] [address] [place] Hematocrit (Bld) [Volume fraction] 42.9 % Normal 39.0-51.[address] [facility] Comment on above: Order Comment: Speci men Type: BLOOD SPECIMEN Ordering Facility: [facility] Address: [address] [place] [address] Performed By: #### 5 7021-8 #### [facility] CLIA [id number] [address] Hemoglobin (Bld) [Mass/Vol] 14.7 g/dL Normal 13.0-17.[address] [facility] Comment on above: Order Comment: Speci men Type: BLOOD SPECIMEN Ordering Facility: [facility] Address: [address] [place] [address] Performed By: #### 5 7021-8 #### [facility] CLIA [id number] [address] [place] Immature granulocytes (Bld) [#/Vol] 10*3/uL Normal <0.[address] [facility] Comment on above: Order Comment: Speci men Type: BLOOD SPECIMEN Ordering Facility: [facility] Address: [address] [place] [address] Performed By: #### 5 7021-8 #### [facility] CLIA [id number] [address] Immature granulocytes/100 WBC (Bld) 0.2 % Normal [facility] Comment on above: Order Comment: Speci men Type: BLOOD SPECIMEN Ordering Facility: [facility] Address: [address] [place] [address] Performed By: #### 5 7021-8 #### [facility] CLIA [id number] [address] [place] Lymphocytes (Bld) [#/Vol] 2.26 10*3/uL Normal 1.00-4.[address] [facility] Comment on above: Order Comment: Speci men Type: BLOOD SPECIMEN Ordering Facility: [facility] Address: [address] [place] [address] Performed By: #### 5 7021-8 #### [facility] CLIA [id number] [address] Lymphocytes/100 WBC (Bld) 37.6 % Normal [facility] Comment on above: Order Comment: Speci men Type: BLOOD SPECIMEN Ordering Facility: [facility] Address: [address] [place] [address] Performed By: #### 5 7021-8 #### [facility] CLIA [id number] [address] MCH (RBC) [Entitic mass] 30.3 pg Normal 26.0-34.[address] [facility] Comment on above: Order Comment: Speci men Type: BLOOD SPECIMEN Ordering Facility: [facility] Address: [address] [place] [address] Performed By: #### 5 7021-8 #### [facility] CLIA [id number] [address] MCHC (RBC) [Mass/Vol] 34.3 g/dL Normal 30.5-36.0 [facility] Comment on above: Order Comment: Speci men Type: BLOOD SPECIMEN Ordering Facility: [facility] Address: [address] [place] [address] Performed By: #### 5 7021-8 #### [facility] CLIA [id number] [address] [place] [address] [place] MCV (RBC) [Entitic vol] 88.5 fL Normal 80.0-100.0 [facility] Comment on above: Order Comment: Speci men Type: BLOOD SPECIMEN Ordering Facility: [facility] Address: [address] [place] [address] Performed By: #### 5 7021-8 #### [facility] CLIA [id number] [address] [place] [address] [place] Monocytes (Bld) [#/Vol] 0.67 10*3/uL Normal <0.[address] [facility] Comment on above: Order Comment: Speci men Type: BLOOD SPECIMEN Ordering Facility: [facility] Address: [address] [place] [address] Performed By: #### 5 7021-8 #### [facility] CLIA [id number] [address] [place] [address] [place] Monocytes/100 WBC (Bld) 11.1 % Normal [facility] Comment on above: Order Comment: Speci men Type: BLOOD SPECIMEN Ordering Facility: [facility] Address: [address] [place] [address] Performed By: #### 5 7021-8 #### [facility] CLIA [id number] [address] [place] [address] [place] Neutrophils (Bld) [#/Vol] 2.85 10*3/uL Normal 1.45-7.[address] [facility] Comment on above: Order Comment: Speci men Type: BLOOD SPECIMEN Ordering Facility: [facility] Address: [address] [place] [address] Performed By: #### 5 7021-8 #### [facility] CLIA [id number] [address] [place] [address] [place] Neutrophils/100 WBC (Bld) 47.5 % Normal [facility] Comment on above: Order Comment: Speci men Type: BLOOD SPECIMEN Ordering Facility: [facility] Address: [address] [place] [address] Performed By: #### 5 7021-8 #### [facility] CLIA [id number] [address] [place] [address] [place] Nucleated RBC (Bld) [#/Vol] 10*3/uL Normal <0.[address] [facility] Comment on above: Order Comment: Speci men Type: BLOOD SPECIMEN Ordering Facility: [facility] Address: [address] [place] [address] Performed By: #### 5 7021-8 #### [facility] CLIA [id number] [address] [place] [address] [place] Nucleated RBC/100 WBC (Bld) [Ratio] 0.0 /[address] [facility] Comment on above: Order Comment: Speci men Type: BLOOD SPECIMEN Ordering Facility: [facility] Address: [address] [place] [address] Performed By: #### 5 7021-8 #### [facility] CLIA [id number] [address] [place] [address] [place] Platelet mean volume (Bld) [Entitic vol] 9.7 fL Normal 9.0-12.[address] [facility] Comment on above: Order Comment: Speci men Type: BLOOD SPECIMEN Ordering Facility: [facility] Address: [address] [place] [address] Performed By: #### 5 7021-8 #### [facility] CLIA [id number] [address] [place] [address] [place] Platelets (Bld) [#/Vol] 241 10*3/uL Normal 150-[address] [facility] Comment on above: Order Comment: Speci men Type: BLOOD SPECIMEN Ordering Facility: [facility] Address: [address] [place] [address] Performed By: #### 5 7021-8 #### [facility] CLIA [id number] [address] [place] [address] [place] RBC (Bld) [#/Vol] 4.85 10*6/uL Normal 4.20-6.00 [facility] Comment on above: Order Comment: Speci men Type: BLOOD SPECIMEN Ordering Facility: [facility] Address: [address] [facility] [place] [id number] Performed By: #### 5 7021-8 #### [facility] CLIA [id number] [address] [place] [address] [place] WBC (Bld) [#/Vol] 6.01 10*3/uL Normal 3.70-11.00 [facility] Comment on above: Order Comment: Speci men Type: BLOOD SPECIMEN Ordering Facility: [facility] Address: [address] [place] [address] Performed By: #### 5 7021-8 #### [facility] CLIA [id number] [address] OF [facility] Comprehensive metabolic 2000 panelon 05-22-2024 Albumin [Mass/Vol] 4.0 g/dL Normal 3.9-4.[address] [facility] Comment on above: Order Comment: Speci men Type: BLOOD SPECIMEN Ordering Facility: [facility] Address: [address] [place] [address] Performed By: #### 2 4323-8, 3040-3, #### [facility] CLIA [id number] [address] [place] ALP [Catalytic activity/Vol] 92 U/L Normal 38-[address] [facility] Comment on above: Order Comment: Speci men Type: BLOOD SPECIMEN Ordering Facility: [facility] Address: [address] [place] [address] Performed By: #### 2 4323-8, 3040-3, #### [facility] CLIA [id number] [address] ALT [Catalytic activity/Vol] 20 U/L Normal 10-[address] [facility] Comment on above: Order Comment: Speci men Type: BLOOD SPECIMEN Ordering Facility: [facility] Address: [address] [place] [address] Performed By: #### 2 4323-8, 3040-3, #### [facility] CLIA [id number] [address] [place] [address] [place] Anion gap [Moles/Vol] 12 mmol/L Normal 8-15 [facility] Comment on above: Order Comment: Speci men Type: BLOOD SPECIMEN Ordering Facility: [facility] Address: [address] [place] [address] Performed By: #### 2 4323-8, 3039-3, #### [facility] CLIA [id number] [address] [place] [address] [place] AST [Catalytic activity/Vol] Normal [facility] Comment on above: Order Comment: Speci men Type: BLOOD SPECIMEN Ordering Facility: [facility] Address: [address] [place] [address] Result Comment: Unab le to assay due to interference from hemolysis. Suggest reorder as clinically indicated. Performed By: #### 2 4323-8, 3, #### [facility] CLIA [id number] [address] [place] [address] [place] Bilirubin [Mass/Vol] 0.3 mg/dL Normal 0.2-1.[address] [facility] Comment on above: Order Comment: Speci men Type: BLOOD SPECIMEN Ordering Facility: [facility] Address: [address] [place] [address] Performed By: #### 2 4323-8, 3, #### [facility] CLIA [id number] [address] [place] [address] [place] Calcium [Mass/Vol] 9.1 mg/dL Normal 8.5-10.[address] [facility] Comment on above: Order Comment: Speci men Type: BLOOD SPECIMEN Ordering Facility: [facility] Address: [address] [place] [address] Performed By: #### 2 4323-8, 3039-3, #### [facility] CLIA [id number] [address] [place] [address] [place] Chloride [Moles/Vol] 102 mmol/L Normal 98-[address] [facility] Comment on above: Order Comment: Speci men Type: BLOOD SPECIMEN Ordering Facility: [facility] Address: [address] [place] [address] Performed By: #### 2 4323-8, 3040-3, #### [facility] CLIA [id number] [address] [place] [address] [place] CO2 [Moles/Vol] 22 mmol/L Normal 22-[address] [facility] Comment on above: Order Comment: Speci men Type: BLOOD SPECIMEN Ordering Facility: [facility] Address: [address] [place] [address] Performed By: #### 2 4323-8, 3040-3, #### [facility] CLIA [id number] [address] [place] [address] [place] [facility] Creatinine [Mass/Vol] 1.08 mg/dL Normal 0.73-1.22 [facility] Comment on above: Order Comment: Kristeni men Type: BLOOD SPECIMEN Ordering Facility: [facility] Address: [address] [place] [address] Performed By: #### 2 4323-8, 3040-3, #### [facility] CLIA [id number] [address] Creatinine and Glomerular filtration rate.predicted panel (S/P/Bld) 83 mL/min/1.73m??? Normal >=[address] [facility] Comment on above: Order Comment: Mario Alberto men Type: BLOOD SPECIMEN Ordering Facility: [facility] Address: [address] [place] [address] Result Comment: Rain mated Glomerular Filtration Rate (eGFR) is calculated using the 2020 CKD-EPI creatinine equation. This equation utilizes serum creatinine, sex, and age as parameters. The creatinine assay has traceable calibration to isotope dilution-mass spectrometry. Refer to KDIGO guidelines for clinical interpretation. In patients with unstable renal function, e.g. those with acute kidney injury, the eGFR may not accurately reflect actual GFR. Performed By: #### 2 4323-8, 3040-3, 80232-2 #### [facility] CLIA [id number] [address] [place] [address] [place] Glucose [Mass/Vol] 128 mg/dL High 74-[address] [facility] Comment on above: Order Comment: Mario Alberto lawrence Type: BLOOD SPECIMEN Ordering Facility: [facility] Address: [address] [place] [address] Result Comment: The [place] [employer] (ADA) provides guidance for cutoff values for fasting glucose and random glucose. The ADA defines fasting as no caloric intake for at least 8 hours. Fasting plasma glucose results between 100 to 125 mg/dL indicate increased risk for diabetes (prediabetes). Fasting plasma glucose results greater than or equal to 126 mg/dL meet the criteria for diagnosis of diabetes. In the absence of unequivocal hyperglycemia, results should be confirmed by repeat testing. In a patient with classic symptoms of hyperglycemia or hyperglycemic crisis, random plasma glucose results greater than or equal to 200 mg/dL meet the criteria for diagnosis of diabetes. Reference: Standards of Medical Care in Diabetes 2016, [place] [employer]. Diabetes Care. 2016.39(Suppl 1). Performed By: #### 2 4323-8, 0-3, #### [facility] CLIA [id number] [address] [place] [address] [place] Potassium [Moles/Vol] 3.8 mmol/L Normal 3.7-5.1 [facility] Comment on above: Order Comment: Mario Alberto lawrence Type: BLOOD SPECIMEN Ordering Facility: [facility] Address: [address] [place] [address] Performed By: #### 2 4323-8, 0-3, #### [facility] CLIA [id number] [address] [place] [address] [place] Protein [Mass/Vol] 6.7 g/dL Normal 6.3-8.[address] [facility] Comment on above: Order Comment: Mario Alberto lawrence Type: BLOOD SPECIMEN Ordering Facility: [facility] Address: [address] [place] [address] Performed By: #### 2 4323-8, 0-3, #### [facility] CLIA [id number] [address] [place] [address] [place] Sodium [Moles/Vol] 136 mmol/L Normal 136-[address] [facility] Comment on above: Order Comment: Speci men Type: BLOOD SPECIMEN Ordering Facility: [facility] Address: [address] [place] [address] Performed By: #### 2 4323-8, 3040-3, 04581-5 #### [facility] CLIA [id number] [address] [place] [address] [place] Urea nitrogen [Mass/Vol] 17 mg/dL Normal 9-[address] [facility] Comment on above: Order Comment: Speci men Type: BLOOD SPECIMEN Ordering Facility: [facility] Address: [address] [place] [address] Performed By: #### 2 4323-8, 3040-3, #### [facility] CLIA [id number] [address] [place] Lipase SerPl-cCncon 05-23-19 25 Lipase [Catalytic activity/Vol] 21 U/L Normal 16-[address] [facility] Comment on above: Order Comment: Speci men Type: BLOOD SPECIMEN Ordering Facility: [facility] Address: [address] [place] [address] Performed By: #### 2 4323-8, 3040-3, #### [facility] CLIA [id number] [address] [place] Magnesium SerPl-mCncon 05-22 Magnesium [Mass/Vol] 2.1 mg/dL Normal 1.7-2.[address] [facility] Comment on above: Order Comment: Speci men Type: BLOOD SPECIMEN Ordering Facility: [facility] Address: [address] [place] [address] Performed By: #### 2 4323-8, 3040-3, 91777-6 #### [facility] CLIA [id number] [address] [place] [address] [place] Vital Signs Date Time Vital Sign Value Performing Clinician Marlo cardoza 07-20-2024 09:56-0400 Body height 182.88 cm No Primary Care Physician [facility] 07-20-2024 09:56-0400 Body mass index (BMI) [Ratio] 26.6 kg/m2 No Primary Care Physician [facility] 07-20-2024 09:56-0400 Body weight 88.9 kg No Primary Care Physician [facility] 07-20-2024 09:56-0400 Diastolic blood pressure 80 mm[Hg] No Primary Care Physician [facility] 07-20-2024 09:56-0400 Heart rate 89 /min No Primary Care Physician [facility] 07-20-2024 09:56-0400 Respiratory rate 17 /min No Primary Care Physician [facility] 07-20-2024 09:56-0400 SaO2% (BldA) [Mass fraction] 99 % No Primary Care Physician [facility] 07-20-2024 09:56-0400 Systolic blood pressure 128 mm[Hg] No Primary Care Physician [facility] Encounters Encounter Date Encounter Type Care Provider Facility Start: 08-12-2024 ambulatory Sami Martinez Facility :[facility] Start: 08-03-2024 End: 08-03-2024 Transcribe Orders Sho Turpin APRN.CNP Work Phone: Referring Physician Comment on above: Erectile dysfunction , unspecified erectile dysfunction type (Primary Dx) Other male erectile dysfunction (Primary Dx) Start: 07-20-2024 End: 07-20-[address] Sami Martinez MD -[facility] Work Phone: Start: 07-20-2024 End: 07-20-2024 ambulatory No Primary Care Physician [facility] Work Phone: Start: 07-09-2024 End: 07-09-2024 Patient encounter procedure Larry Urban [facility] Work Phone: Start: 07-09-2024 End: 07-09-2024 ambulatory No Primary Care Physician Facility:[facility] Start: 05-28-2024 End: 05-28-2024 Telephone encounter Izzy Diaz MD Work Phone: General Surgery Start: 05-22-2024 End: 05-23-2024 [facility] Facility[facility] Procedures Date Procedure Procedure Detail Performing Clinician Start: 07-09-2024 Vitamin D, 25-hydrox y measurement No Primary Care Physician Comment on above: Vitamin D StatusDefi ciency: <20 ng/mL (50nmol/L)Insufficiency: 20-30 ng/mL (50-75 nmol/L)Sufficiency: 30-100 ng/mL (75-250 nmol/L)Toxicity: >100 ng/mL (>250 nmol/L) Plan of Treatment Date Care Activity Detail Author Start: 05-23-2027 Diabetes Screening Diabetes Screening [facility] Start: 11-08-2024 Influenza vaccination Influenza Vaccine (Season Ended) [facility] Start: 11-09-2023 Covid-19 Vaccine ( season) Covid-19 Vaccine ( season) [facility] Start: 11-09-2023 Influenza vaccination Influenza Vaccine (#1) [facility] Start: 2022 Pneumococcal Vaccine: 50+ (1 of 1 - PCV) Pneumococcal Vaccine: 50+ (1 of 1 - PCV) [facility] Start: 2022 Shingrix Vaccine (1 of 2) Shingrix Vaccine (1 of 2) [facility] Start: 2017 Screening for malignant neoplasm of colon [facility] Start: 12-21-2007 Lipid panel Lipid Screening [facility] Start: 12-21-1991 Hepatitis B Vaccine (1 of 3 - 19+ 3-dose series) Hepatitis B Vaccine (1 of 3 - 19+ 3-dose series) [facility] Start: 12-21-1991 Urine microalbumin profile DTaP,Tdap,Td Vaccine (1 - Tdap) [facility] Start: 1990 Anxiety Screening Anxiety Screening [facility] Start: 1990 Depression Screening Depression Screening [facility] Start: 1990 Hepatitis C screening Hepatitis C Screening [facility] Start: 1990 HIV screening HIV Screening [facility] Serum testosterone measurement [facility] Testosterone Free [Mass/volume] in Serum or Plasma [facility] Testosterone measurement [facility] Payers Date Payer Category Payer Self-pay 2024 Unknown [id number] 2024 Private Health Insurance RUKHSANA plasencia [id number] 2024 Private Health Insurance [id number] Self-pay SELF PAY INSURANCE [id number] Unknown [id number] Unknown [id number] Unknown [id number] Social History Date Type Detail Facility Start: [facility]24 [facility] History of tobacco use Current smoker [facility] History of tobacco use Cigarette Smoker [facility] Start: 05-22-2024 Alcoholic beverage intake Current drinker of alcohol (finding) [facility] Start: 05-22-2024 History of Social function [facility] Start: 05-22-2024 Tobacco use panel [facility] Start: 1970 Sex assigned at Not on file [facility] Start: 07-20-2024 [facility]finding[facility] Start: 1970 Sex Assigned At Male [facility] Telephone encounter Note 05-28-2024 Telephone Encounter - Keerthi Foy - 05/28/2024 10:48 AM EDT Note Date & Type Note Facility 05-28-2024 Telephone encount er Note Returned patients call to reschedule his consult with Dr. Diaz. [facility] Note 05-28-2024 Telephone Encounter - Keerthi Foy - 05/28/2024 10:48 AM EDT Note Date & Type Note Facility 05-28-2024 Miscellaneous Notes Formattin g of this note might be different from the original. Returned patients call to reschedule his consult with Dr. Diaz. documented in this encounter [facility] Evaluation note Note Date & Type Note Facility Evaluation note Diagnosis Onset Date Resolution Hernia noneactive July 20, 2024 9:39am [facility] Work Phone: Evaluation note Note Date & Type Note Facility Evaluation note Diagnosis Erectile dysfunction, unspecified erectile dysfunction type- Primary documented in this encounter [facility] Evaluation note Note Date & Type Note Facility Evaluation note Diagnosis Other male erectile dysfunction- Primary documented in this encounter [facility] Reason for referral (narrative) Note Date & Type Note Facility Reason for referral (narrative) No reason for referral information available [facility] Work Phone: Summary Purpose Family History No Family History Records Found Relationship Condition Age at Onset Recorded Date/T noris father Malignant neoplasm Unknown mother Cardiac disease Unknown Congestive heart failure Unknown Advance Directives No Advanced Directives Records FoundNo Advanced Directives Records FoundNo Advanced Directives Records Found Chief Complaint and Reason for Visit Chief Complaint Admit Date Hernia July 20, 2024 9:39a m Reason for Visit Admit Date Hernia July 20, 2024 9:39a m Additional Source Comments (unrecognized sect ion and content) No Status Records FoundNo Status Records FoundNo Status Records Found INFORMATION SOURCE (unrecogn ized section and content) DATE CREATED AUTHOR 05/25/[address] [facility] DATE CREATED AUTHOR AUTHOR'S ORGANIZ ATION 05/30/2024 [facility] DATE CREATED AUTHOR AUTHOR'S ORGANIZ ATION 08/12/2024 [facility] Source Comments (unrecognize d section and content) In the event this informatio n is protected by the Federal Confidentiality of Alcohol and Drug Abuse Patient Records regulations: The Federal rules restrict any use of the information to criminally investigate or prosecute any alcohol or drug abuse patient[facility] the event this information is protected by the Federal Confidentiality of Alcohol and Drug Abuse Patient Records regulations: The Federal rules restrict any use of the information to criminally investigate or prosecute any alcohol or drug abuse patient.[facility] the event this information is protected by the Federal Confidentiality of Alcohol and Drug Abuse Patient Records regulations: The Federal rules restrict any use of the information to criminally investigate or prosecute any alcohol or drug abuse patient.[facility] Care Teams (unrecognized sec tion and content) Team Status: Active Member Role Status Dates [place] Beam Primary Care Provider Active Team Status: Inactive Member Role Status Dates No Primary Care Physician Primary Care Provider Active Start: July 09, 2024 End: July 09, 2024 Larry Beam VSC, [facility] Attending Provider Active Start: July 09, 2024 End: July 09, 2024 Gregoriobuludayna Beam VSC, MEDICAL ASST-C Referring Provider Active Start: July 09, 2024 End: July 09, 2024 Team Status: Inactive Member Role Status Dates Wicho Beam Primary Care Provider Active Start: July 20, 2024 End: July 20, 2024 [place] Beam Referring Provider Active Start: Janae foreman 2024 End: July 20, 2024 Dr. Sami Martinez MD Attending Provider Active Start: July 20, 2024 End: July 20, 2024 Rail Detector Car Operator Relationship Specialty Start Date End Date Sho Turpin APRN.TRANSVERSE ABDOMINAL MUSCLE SURGEON [address] [place] [address] Referring [facility] 08/03/24 Rail Detector Car Operator Relationship Specialty Start Date End Date Sho Turpin APRN.TRANSVERSE ABDOMINAL MUSCLE SURGEON [address] [place] [address] Referring [facility] 08/03/24 Goals (unrecognized section and content) Goals may be documented in a n alternate section FOR RECORDS PERTAINING TO PATIENTS WHO ARE OR HAVE BEEN ENROLLED IN A CHEMICAL DEPENDENCY/SUBSTANCEABUSE PROGRAM, SOME INFORMATION MAY BE OMITTED. This clinical summary was aggregated from multiple sources. Caution should be exercised in using it in the provision of clinical care. This summary normalizes information from multiple sources, and as a consequence, information in this document may materially change the coding, format and clinical context of patient data. In addition, data may be omitted in some cases. CLINICAL DECISIONS SHOULD BE BASED ON THE PRIMARY CLINICAL RECORDS. [facility] [place] [facility]. provides no warranty or guarantee of the accuracy or completeness of information in this document.
--- NOTE | 2024-08-12 11:01 | PCM.HP.STD ---
HPI - General General Date of Service: 08/12/24 Chief Complaint: right inguinal hernia HPI Narrative TACOS OQUENDO, is a 53 M who [facility] Wears glasses Substance abuse Alcohol use Back pain Injury of back Leg cramps Non-smoker Injury of head and neck Arthritis Anxiety Home Medications ?Medication ?Instructions ?Recorded ?Last Taken ?Type cholecalciferol (vitamin D3) 25 25 mcg PO QDAY 07/20/24 08/10/24 History mcg (1,000 unit) capsule naproxen sodium 220 mg capsule 220 mg PO BID PRN pain 07/20/24 Unknown History (Aleve) sildenafil 50 mg tablet 50 mg PO QDAY PRN ED 07/20/24 08/10/24 History Allergy/AdvReac Type Severity Reaction Status Date / Time No Known Allergies Allergy Verified 08/12/24 09:34 Family History Father Cancer lung Mother Heart disease CHF (congestive heart failure) Surgical History Hx of knee surgery Hx of shoulder surgery H/O bilateral inguinal hernia repair Social History Smoking Status: Never smoker alcohol intake: former Vital Signs Vital Signs Vital Signs: 08/12/24 09:36 08/12/24 09:36 08/12/24 10:01 Temperature 99.7 F H 99.7 F H Temperature Source Temporal Pulse Rate 84 84 Respiratory Rate 16 16 Respiratory Pattern Normal Blood Pressure 132/92 H 132/92 H Blood Pressure Mean 105 Blood Pressure Source Monitor Blood Pressure Position Sitting Blood Pressure Location Left Arm Pulse Ox 99 99 Oxygen Delivery Method Room Air Room Air Weight Weight: 192 lb 0.362 oz Body Mass Index (BMI) 24.0 Physical Exam Const alert, oriented x3 and no apparent distress Assessment & Plan Assessment/Plan (1) Right inguinal hernia: PLAN: Plan plan for robotic RIH repair today
[2024-08-12] MEDS: Cefazolin 2 GM in 0.9% Normal Saline (100mL Bag) 100 ML IV (11:19)
[2024-08-12] MEDS: Gentamicin 80 MG/2 ML Vial (11:37)
[2024-08-12] MEDS: Bupiv/Epi 0.25% 30 ML Vial (11:37)
--- NOTE | 2024-08-12 13:26 | DCINST_ITS ---
Discharge Instructions Diet Discharge Diet: Light diet - advance as tolerated Activity Discharge Activity: Return to Normal Activity May shower in (days): 1 Ice area for (Minutes): 30 Lifting Restrictions: No lifting pushing or pulling more than 20 pounds for 6 weeks Dressing / Incision Call your doctor if your incision/area has: Continuous Slow Oozing, Sudden Increased Bleeding, Increased Pain/ Swelling, Increased Redness, Foul Smelling Discharge and Swelling at the incision site Call your doctor if you observe: Fever of 101 or Higher Cleanse incision/area with: Soap & Water Follow Up Care Please Follow Up With: Sami Martinez MD When: 2 weeks. Please call office to schedule appointment Test Results: Test results from this visit will be discussed in further detail at your follow- up appointment, if applicable. Discharge Plan Admission Primary Reason for Your Visit: Robotic right inguinal hernia repair with mesh Attending Provider: Sami Martinez Primary Care Provider: Larry Urban [facility] Instructions Print Language: Stateless Discharge Orders/Prescriptions Prescriptions: New oxycodone-acetaminophen [Percocet] 5-325 mg tablet 1 tab PO Q8H PRN (Reason: pain) 4 Days Qty: 12 0RF Continued cholecalciferol (vitamin D3) 25 mcg (1,000 unit) capsule 25 mcg PO QDAY naproxen sodium [Aleve] 220 mg capsule 220 mg PO BID PRN (Reason: pain) sildenafil 50 mg tablet 50 mg PO QDAY PRN (Reason: ED) Rx Instructions: administer 30 minutes to 4 hours before activity Other Ambulatory Orders: 12 Lead EKG (Routine) Timeframe: 20240810 Facility: [facility] - Location: Cardiovascular Services Ordered By: Dr. Khurram Benson Referrals / Follow Up: Wicho Urban [Student Nurse] - Disposition Disposition (needs filled in before D/C Order can be placed): Home, Self Care
--- NOTE | 2024-08-12 13:29 | PCM.OPRPT ---
Procedures Digestive 40xxx-49xxx: 23125 Lap ing hernia repair init Operative Report (Standard) Operative Information Date of Procedure: 08/12/24 Pre-Operative Diagnosis: Right inguinal hernia Post-Operative Diagnosis: Right inguinal hernia Surgery/Procedure Performed: Robotic right inguinal hernia pair with mesh clamper: Yes Special Machine Stitcher: Virgil Hernandez Tasks completed by mate first: Closing, Trocar and Retracting Additional orthopedic assistant?: No Type of Anesthesia: General and Local RN Documented Start/Stop Times: Operation Date: 08/12/24 11:00 Case Time Into Pre-Op 08/12/24 08:55 Out of Pre-Op 08/12/24 11:04 Anesthesia Start 08/12/24 11:11 Into Room 08/12/24 11:11 Procedure Start 08/12/24 11:37 Procedure End 08/12/24 13:33 Anesthesia End 08/12/24 13:43 Out of Room 08/12/24 13:43 Into Recovery 08/12/24 13:45 Procedure Start Time: 11:11 Procedure Stop Time: 13:30 Select all DRAINS/GRAFTS/IMPLANTS that apply: Prosthetic device Prosthetic device details: [employer] deck mechanic 10 x 15 mesh Special Medications: 2 g Ancef IV preop Estimated Blood Loss: 20 cc Specimen collected: No Description of surgery: The patient is a 53-year-old male recently seen to the office with a fairly sizable right inguinal hernia. This is causing him increasing discomfort. He presented to the office recently to discuss repair. I offered him a robotic repair with mesh. We discussed the details of the planned procedure including risk benefits and alternatives. He wished to proceed. Patient was brought to the operating room today following informed consent. Preoperative antibiotics were given and a timeout was performed. He is placed supine on the operative table with arms outstretched and arm boards. General endotracheal anesthesia was induced. Once adequately sedated his arms were comfortably tucked at his side. His abdomen was then prepped and draped in the usual sterile manner. An 8 mm incision was made just above the umbilicus. Through this a 5 mm trocar was placed optically. This was placed without incident. Once in place the abdomen was then fully insufflated with CO2 gas. A 5 mm 0 degree scope was inserted. There were no signs of bowel or vascular injury. Next an 8 mm trocar was placed under direct visualization on the right side of the abdomen. Another 8 mm trocar was placed on the left side of the abdomen. The original 5 mm trocar was switched out to the robotic 8 mm trocar as well. The patient was then placed in mild Trendelenburg positioning. The da Hallie robot was then brought onto the operative field and was docked. The scope was then inserted. There was no evidence of a left inguinal hernia. There was clearly a large direct right inguinal hernia. The peritoneum overlying the hernia was then incised in a lateral to medial direction. A subperitoneal plane was then developed using blunt dissection as well as use of scissors and electrocautery. This was used to dissect down to the level of the hernia sac. The hernia sac was quite large and very thin-walled. The sac was from the cord structures and was slowly reduced. This was clearly a very chronic and very large hernia. This hernia sac was eventually reduced although there was some holes in the hernia sac due to the extensive dissection. This will be closed at the end of the procedure. Patient also had a fairly sizable cord lipoma. This was reduced. It was transected using electrocautery and scissors however there was some bleeding at 1 particular location. This was attempted to be cauterized without success. I eventually obtained a clip and a clip was placed on this vessel which controlled hemostasis. The dissection field was then irrigated with saline and suction. Hemostasis was excellent. Next the mesh was selected. This was a 10 x 15 ProGrip mesh. This was trimmed to fit the operative field. This was inserted into the abdomen and then laid into position over the hernia defect. This laid very nicely. Next the peritoneum was then closed using V-Loc suture in a running manner. This closed the peritoneum well. 3-0 Vicryl was also used to close the holes in the hernia sac. Once closed there were no further openings in the peritoneum. The cord lipoma was extracted through one of the 8 mm trocar sites. The trocars were then removed. Local anesthetic was injected at the beginning of the procedure. The incisions were then closed with 4-0 Vicryl. Skin glue was applied as dressing. He was awakened from anesthesia and taken to recovery in good condition. Surgical Findings: Large, chronic direct right inguinal hernia Complications Complications: No Admit VTE Documentation VTE Present on Admission: No VTE Mechan Device Prophylaxis: SCD's VTE Pharm Prophylaxis ordered?: No Reason prophylaxis not ordered: Treatment Not Indicated
--- NOTE | 2024-08-12 13:52 | PCM.POST.ANE ---
Anesthesia: Postop Eval I Current Vital Signs Temperature: 97.3 F Pulse Rate: 79 Blood Pressure: 113/79 Respiratory Rate: 14 Pulse Ox: 95 Oxygen Delivery Method: Room Air Assessment Airway patent: Yes Spontaneous unlabored respirations: Yes Mental status: Asleep nausea: No Vomiting: No Anesthesia Complication: No Fluid Hydration Crystalloid volume administer (ml): 1,500 Total IV fluid infused: 1,500 Progress Note Anesthesia document: Postop Eval 1 completed: Yes
[2024-08-12] MEDS: oxyCODONE 5 MG Tablet PO (15:28)
[2024-08-12] MEDS: Acetaminophen 325 MG Tablet PO (15:29)
--- NOTE | 2024-08-12 19:10 | PCM.POSTANE2 ---
Anesthesia Postop Eval I Sum Postop Eval Completion status Anesthesia document: Postop Eval 1 completed: Yes Anesthesia Postop Eval I Summary Anesthesia Postop Eval I Summary: Anesthesia Postop Eval I: Assessment Summary Airway patent Yes 08/12/24 13:53 [email or web address] Spontaneous unlabored Yes 08/12/24 13:53 [email or web address] respirations Mental status Asleep 08/12/24 13:53 [email or web address] nausea No 08/12/24 13:53 [email or web address] Vomiting No 08/12/24 13:53 [email or web address] Anesthesia Postop Eval I: Fluid Summary Crystalloid volume administer 1,500 08/12/24 13:53 [email or web address] (ml) Colloids volume administered ( ml) Blood Product volume administered (ml) Total IV fluid infused 1,500 08/12/24 13:53 [email or web address] Anesthesia Postop Eval I: Summary Notes Anesthesia Complication No 08/12/24 13:53 [email or web address] Anesthesia Complication Comment: Post-operative progress note Anesthesia: Postop Eval II Evaluation Mental status: Awake and Calm Pain Level: 1 nausea: No Vomiting: No Complications Anesthesia Complication: No
== END 2024-08-12 17:09 | disposition home or self-care (01) ==
LOC: SDC 08:52 → AC 08:52
PROVIDERS: Referring Provider Surgery; Visit Provider Surgery
PROC: (CPT 49650; principal; 2024-08-12 10:40)
DX: K40.90 Unilateral inguinal hernia, without obstruction or gangrene, not specified as recurrent (principal); D17.6 Benign lipomatous neoplasm of spermatic cord
CPT/HCPCS: 49650; S2900; 00840; 93005; C1781; J2405